=== PATIENT | male | born 1950 | race Caucasian/White ===

== ENCOUNTER 2017-02-16 07:50 | Day surgery (SDC) | payer BC ==
--- NOTE | ~2017-02-16 | EGD ---
EGD REPORT [facility] [address] [place] [id number] NAME: GUIDO HAYES : [birth year] STATUS : REG [facility]#: [id number] AGE: 66 ADM/REG DATE : 02/16/17 MR#: [id number] REPORT SERV DATE: 02/16/17 DICTATED BY: CHEKO CHRISTENSEN. DATE: 02/16/17 REPORT STATUS : Draft TRANSCRIBED BY: [facility] DATE: 02/16/17 [facility] Center Patient Name: Guido Hayes Date of : 1950 Attending MD: CHEKO CHRISTENSEN MD Procedure Date No Time: 02/16/2017 Procedure: Colonoscopy Indications: Screening in patient at increased risk: Family history of 1st-degree relative with colorectal cancer mother. Patient Profile: Informed consent was obtained from the patient by me prior to the procedure. Risks, benefits, and alternatives were discussed including the risk of bleeding, perforation, infection, reaction to medicine, missed lesion, and cardiopulmonary complications. Referring MD: SALINA QUISPE Medicines: Monitored Anesthesia Care Complications: No immediate complications. Procedure: Pre-Anesthesia Assessment: - ASA Grade Assessment: III - A patient with severe systemic disease. After I obtained informed consent, the scope was passed under direct vision. Throughout the procedure, the patient's blood pressure, pulse, and oxygen saturations were monitored continuously. The pediatric colonoscope was introduced through the anus and advanced to the cecum, identified by appendiceal orifice and ileocecal valve. The colonoscope was slowly withdrawn with careful examination all mucosal surfaces including specific attention around flexures and tip deflection behind folds; retroflexion performed in rectum. The colonoscopy was performed without difficulty. The patient tolerated the procedure well. The quality of the bowel preparation was adequate. The ileocecal valve, appendiceal orifice and rectum were photographed. Findings: A flat polyp was found in the descending colon. The polyp was 5 mm in size. The polyp was removed with a cold biopsy forceps. Resection and retrieval were complete. A few small-mouthed diverticula were found in the sigmoid colon. Impression: - One 5 mm polyp in the descending colon. Resected and retrieved. Recommendation: - Patient has a contact number available for EGD REPORT [address] [place] [address] NAME: GUIDO HAYES : [birth year] STATUS : REG [facility] PAT#: [id number] AGE: 66 ADM/REG DATE : 02/16/17 MR#: [id number] REPORT SERV DATE: 02/16/17 DICTATED BY: CHEKO CHRISTENSEN DATE: 02/16/17 REPORT STATUS : Draft TRANSCRIBED BY: [employer] DATE: 02/16/17 emergencies. The signs and symptoms of potential delayed complications were discussed with the patient. Return to normal activities tomorrow. Written discharge instructions were provided to the patient. - Regular diet. - Continue present medications. - Await pathology results. - Repeat colonoscopy for surveillance based on pathology results. - Restart ASA/Plavix today. Procedure Code(s): --- Professional --- 73184, Colonoscopy, flexible, proximal to splenic flexure; with biopsy, single or multiple Diagnosis Code(s): --- Professional --- D12.4, Benign neoplasm of descending colon Z12.11, Encounter for screening for malignant neoplasm of colon Z80.0, Family history of malignant neoplasm of digestive organs CPT copyright 2013 [employer]. All rights reserved. The codes documented in this report are preliminary and upon furnace repairer review may be revised to meet current compliance requirements. CHEKO CHRISTENSEN MD 02/16/2017 10:30 AM This report has been signed electronically. Number of Addenda: 0 Note Initiated On: 02/16/2017 10:05 AM Scope Withdrawal Time 0 hours 11 minutes 57 seconds [address] [place] [id number]
[~2017-02-16 07:50] MED LIST: ASAB PO; PLAVIX PO; Z100 PO
== END 2017-02-16 23:59 | disposition home health service (06) ==
LOC: DMU 07:50
PROVIDERS: Internal Medicine Gastroenterology
PROC: 0DBM8ZX Excision of Descending Colon, Via Natural or Artificial Opening Endoscopic, Diagnostic (ICD-10-PCS; principal; 2017-02-16 09:00)
DX: Z12.11 Encounter for screening for malignant neoplasm of colon (principal); D12.4 Benign neoplasm of descending colon; K57.30 Diverticulosis of large intestine without perforation or abscess without bleeding; I25.2 Old myocardial infarction; I25.119 Atherosclerotic heart disease of native coronary artery with unspecified angina pectoris; Z80.0 Family history of malignant neoplasm of digestive organs; Z87.442 Personal history of urinary calculi; Z98.890 Other specified postprocedural states
CPT/HCPCS: 82962; 88305